=== PATIENT | male | born 1995 | race Asian ===

== ENCOUNTER 2017-06-14 23:04 | Emergency (ER) | payer SELFPAY ==
[~2017-06-14] VITALS: Ht 185.4 cm; Wt 70.3 kg
[2017-06-14] MEDS ORDERED: NKM (23:11)
[2017-06-14] MEDS ORDERED: CLOTRIMAZOLE15 GM TOPIC (23:30)
--- NOTE | 2017-06-14 23:31 | Emergency Room Report ---
History of Present Illness General Chief Complaint: Skin Rash/Abscess Source: Patient Present Illness HPI Is a 22-year-old male with no past medical history. He presents with a rash on his right neck for the last 2 months. [id number] medication without helping. She did expanding. No fever chills denies nausea vomiting indigestion. No other rash anywhere. Allergies: Coded Allergies: No Known Allergies (Unverified , 06/14/17) Patient History Past Medical History: see triage record, old chart reviewed Past Surgical History: none Pertinent Family History: none Social History: Denies: smoking Immunizations: other Reviewed Nursing Documentation: PMH: Agreed, PSxH: Agreed Nursing Documentation-PMH Past Medical History: No Stated History Review of Systems Eye: Denies: eye pain, blurred vision ENT: Denies: ear pain, nose congestion, throat swelling Respiratory: Denies: cough, shortness of breath Cardiovascular: Denies: chest pain, palpitations Gastrointestinal: Denies: abdominal pain, diarrhea, nausea, vomiting Musculoskeletal: Denies: back pain, joint pain Skin: Reports: rash Neurological: Denies: headache, numbness Endocrine: Denies: increased thirst, increased urine Hematologic/Lymphatic: Denies: easy bruising All Other Systems: negative except mentioned in HPI Physical Exam Vital Signs Date Time Temp Pulse Resp B/P (MAP) Pulse Ox O2 Delivery O2 Flow Rate FiO2 06/14/17 23:05 98.4 103 16 110/72 96 Room Air vitals normal Sp02 EP Interpretation: reviewed, normal General Appearance: well appearing, no apparent distress, alert Head: normocephalic, atraumatic Eyes: bilateral eye PERRL, bilateral eye EOMI ENT: hearing grossly normal, normal pharynx Neck: full range of motion, supple, no meningismus Respiratory: chest non-tender, lungs clear, normal breath sounds Cardiovascular #1: regular rate, rhythm, no murmur Gastrointestinal: normal bowel sounds, non tender, no mass, no organomegaly, no bruit, non-distended Musculoskeletal: back normal, gait/station normal, normal range of motion Psychiatric: mood/affect normal Skin: warm/dry, rash - There is a dry macular papular rash in a adalgisa pattern on his right neck/shoulder area. Measured about 3 x 2 cm. No purpura. Dry scaly skin. Medical Decision Making Diagnostic Impression: Primary Impression: Tinea corporis ER Course Patient presents with a tinea to his body. No evidence of abscess or cellulitis. We'll discharge home. Last Vital Signs Date Time Temp Pulse Resp B/P (MAP) Pulse Ox O2 Delivery O2 Flow Rate FiO2 06/14/17 23:05 98.4 103 16 110/72 96 Room Air Status: unchanged Disposition: HOME, SELF-CARE Condition: Stable Scripts Clotrimazole* (LOTRIMIN*) 15 Gm Cream..g. 1 APPLIC TOPIC TWICE A DAY, #50 GM Prov: EVANS PAYNE M.D. 06/14/17 Additional Instructions: Followup with your Dr. in 7 days. You may be a referral to see a supervisor of communications. Return if worse. EVANS PAYNE M.D. Jun 14, 2017 23:31
[2017-06-14 23:40] VITALS: BP 110/72
[2017-06-14 23:45] VITALS: BP 110/72
== END 2017-06-14 23:45 | disposition home or self-care (01) ==
LOC: EMR 23:44
DX: B35.4 Tinea corporis (principal)
CPT/HCPCS: 99283